=== PATIENT | female | born 1990 ===

== ENCOUNTER 2021-06-22 17:09 | Emergency (ER) | payer SELFPAY ==
[2021-06-22 19:09] VITALS: BP 127/90
[2021-06-22] MEDS ORDERED: ACETAMINOPHEN 500 MG TAB PO ONE (19:18)
--- NOTE | 2021-06-22 19:19 | Emergency Department Report ---
ED ENT HPI - General Chief complaint: Dental/Oral Stated complaint: BROKE TOOTH PAIN Time Seen by Provider: 06/22/21 19:06 Source: patient Mode of arrival: Ambulatory Limitations: No Limitations - History of Present Illness Initial comments: This is a 30-year-old female nontoxic, well nourished in appearance, no acute signs of distress presents to the ED with c/o of acute on chronic upper dental pain x several weeks. Patient stated has a surgical procedure coming up in [place] next week by a oral surgeon and has been placed on Clindamycin, Tramadol and prednisone which she stated is currently taking. Patient stated that tramadol is not relieving her pain. Patient describes toothache as aching level of 8 out of 10. Patient denies any facial swelling. Patient denies any numbness, tingling, fever, chills, headache, stiff neck, abdominal pain, chest pain, shortness of breath. Patient denies any drug allergies or significant past medical history. MD complaint: tooth pain -: week(s) Location: tooth # 1 - pain here Severity: mild Severity scale (0 -10): 8 Quality: aching Consistency: constant Improves with: none Worsens with: none Context- Dental: history of dental caries, poor dental care Associated Symptoms: toothache. denies: fever, cough, gum swelling, pain with swallowing, sore throat, tinnitus, hearing loss, discharge from ear, rhinorrhea ED Dental HPI - General Chief complaint: Dental/Oral Stated complaint: BROKE TOOTH PAIN Time Seen by Provider: 06/22/21 19:06 Source: patient Mode of arrival: Ambulatory Limitations: No Limitations ED Review of Systems ROS: Stated complaint: BROKE TOOTH PAIN Other details as noted in HPI Comment: All other systems reviewed and negative Constitutional: fever. denies: chills Eyes: denies: eye pain, eye discharge, vision change ENT: dental pain. denies: ear pain, throat pain, hearing loss, epistaxis, congestion Respiratory: denies: cough, shortness of breath, wheezing Cardiovascular: denies: chest pain, palpitations Endocrine: no symptoms reported Gastrointestinal: denies: abdominal pain, nausea, diarrhea Genitourinary: denies: urgency, dysuria, discharge Musculoskeletal: denies: back pain, joint swelling, arthralgia Skin: denies: rash, lesions Neurological: denies: headache, weakness, paresthesias Psychiatric: denies: anxiety, depression Hematological/Lymphatic: denies: easy bleeding, easy bruising ED Physical Exam - General Limitations: No Limitations General appearance: alert, in no apparent distress - Head Head exam: Present: atraumatic, normocephalic - Eye Eye exam: Present: normal appearance - ENT ENT exam: Present: normal exam, normal orophraynx - Expanded ENT Exam Expanded Ear exam: Present: normal external inspection Mouth exam: Present: normal external inspection, tongue normal. Absent: drooling, trismus, muffled voice Teeth exam: Present: dental caries, fractured tooth #, dental tenderness #. Absent: gingival enlargement 1 - Dental Tenderness 2 - Dental Tenderness Throat exam: Positive: normal inspection, other (uvula midline. no swelling or abscess noted on exam.). Negative: tonsillar erythema, tonsillomegaly, tonsillar exudate, R peritonsillar mass, L peritonsillar mass - Neck Neck exam: Present: normal inspection - Respiratory Respiratory exam: Absent: respiratory distress - Cardiovascular Cardiovascular Exam: Present: normal rhythm - Extremities Exam Extremities exam: Present: normal inspection, full ROM - Back Exam Back exam: Present: normal inspection, full ROM - Neurological Exam Neurological exam: Present: alert, oriented X3, normal gait - Psychiatric Psychiatric exam: Present: normal affect, normal mood - Skin Skin exam: Present: warm, dry, intact, normal color. Absent: rash ED Course Vital Signs 06/22/21 06/22/21 06/22/21 19:08 19:09 19:10 Temperature 100.3 F H 99.8 F H Pulse Rate 89 Respiratory 16 Rate Blood Pressure 127/90 O2 Sat by Pulse 100 Oximetry - Reevaluation(s) Reevaluation #1: 06/22/21 19:25 Patient is speaking in full sentences with no signs of distress noted. ED Medical Decision Making - Medical Decision Making 30-year-old female that presents with dental pain and fever. Patient is stable and was examined by me. Physical exam does not show any dental abscess or s welling. Physical exam is unremarkable but does show that she has dental tenderness. Patient was "demanding" for oxycodone's for her pain. Patient was instructed that I would like to treat her pain with Tylenol 1 g due to her fever and then do further testing to see why patient has fever but patient stated she does not want anything to be done and just wants to be treated with oxycodone. Tylenol 1 g has been ordered for patient's fever and for reevaluation but as per RN, patient was not in the waiting room to receive the medication. Patient eloped without proper treatment, further evaluation and reassessment. Critical care attestation.: If time is entered above; I have spent that time in minutes in the direct care of this critically ill patient, excluding procedure time. ED Disposition Clinical Impression: Pain, dental Disposition: 07 LEFT AWOL/ELOPED Is pt being admited?: No Condition: Undetermined Time of Disposition: 19:31
== END 2021-06-22 19:30 | disposition left against medical advice (07) ==
LOC: ED 17:09
DX: K08.89 Other specified disorders of teeth and supporting structures (principal)
CPT/HCPCS: 99281